=== PATIENT | female | born 1940 | race Caucasian/White ===

== ENCOUNTER 2019-05-17 18:35 | Emergency (ER) | payer MEDICARE ==
--- NOTE | 2019-05-17 20:02 | EDM.PDOC ---
ED HPI GENERAL MEDICAL PROBLEM - General Chief Complaint: ENT Problem Stated Complaint: TONGUE BLEEDING Time Seen by Provider: 05/17/19 20:01 - History of Present Illness INITIAL COMMENTS - FREE TEXT/NARRATIVE: 79-year-old female presents emergency room with bleeding on her tongue. The patient is on Coumadin and recently had her Coumadin dose increas She's noticed some bleeding on the top of her tongue she denies any trauma to the . She's not having any lightheadedness or dizziness but this bleeding is getting to be quite bothersome for her. She has not had any other symptoms with this no fevers no chills no chest pain breathing difficulties or shortness breath - Related Data Allergies Allergy/AdvReac Type Severity Reaction Status Date / Time levofloxacin [From Levaquin] Allergy Difficulty Verified 05/17/19 18:55 Breathing Penicillins Allergy Rash Verified 05/17/19 18:55 Sulfa (Sulfonamide Allergy Rash Verified 05/17/19 18:55 Antibiotics) Home Meds: Home Meds Acetaminophen [Acetaminophen Extra Strength] 1,000 mg PO BID 05/17/19 [History] Aspirin 81 mg PO DAILY 05/17/19 [History] Calcium Carb & Citrate/Vit D3 [Calcium + D3 ER Tablet] 1 each PO BID 05/17/19 [ History] Cyanocobalamin (Vitamin B-12) [Vitamin B-12] 1,000 mcg PO DAILY 05/17/19 [ History] Loratadine [Claritin] 10 mg PO DAILY 05/17/19 [History] Losartan [Cozaar] 100 mg PO DAILY 05/17/19 [History] Lutein/Zeaxanthin [Lutein-Zeaxanthin 20-1 mg Sfgl] 1 each PO DAILY 05/17/19 [ History] Lycopene 10 mg PO DAILY 05/17/19 [History] Mirabegron [Myrbetriq] 25 mg PO MOFR 05/17/19 [History] Montelukast [Singulair] 10 mg PO DAILY 05/17/19 [History] Mv-Mn/Folic Acid/Calcium/Vit K [Women's 50 Plus Multivit Tab] 1 each PO DAILY [History] Omeprazole 40 mg PO DAILY 05/17/19 [History] Pravastatin [Pravachol] 40 mg PO BEDTIME 05/17/19 [History] Propafenone [Rythmol] 150 mg PO TID 05/17/19 [History] Vit A/C/E/Zinc/Selenium/Copper [Vision Formula Tablet] 1 each PO DAILY 05/17/19 [History] Warfarin [Coumadin] 2.5 mg PO [id number] 05/17/19 [History] Warfarin [Coumadin] 5 mg PO ALLRED 05/17/19 [History] amLODIPine [Norvasc] 5 mg PO DAILY 05/17/19 [History] hydroCHLOROthiazide [Hydrochlorothiazide] 25 mg PO DAILY 05/17/19 [History] Past Medical History HEENT History: Reports: Impaired Vision Cardiovascular History: Reports: Afib, High Cholesterol, Hypertension Other Cardiovascular History: has been cardioverted Respiratory History: Reports: Asthma Gastrointestinal History: Reports: GERD Social & Family History - Tobacco Use Smoking Status *Q: Never Smoker - Caffeine Use Caffeine Use: Reports: Coffee - Recreational Drug Use Recreational Drug Use: No ED ROS GENERAL - Review of Systems Review Of Systems: See Below Constitutional: Reports: No Symptoms HEENT: Reports: Other (No problems other than her tongue bleeding) Respiratory: Reports: No Symptoms Cardiovascular: Reports: No Symptoms Endocrine: Reports: No Symptoms GI/Abdominal: Reports: No Symptoms : Reports: No Symptoms Skin: Reports: No Symptoms Neurological: Reports: No Symptoms ED EXAM, DIZZINESS - Physical Exam Exam: See Below Exam Limited By: No Limitations General Appearance: Alert, No Apparent Distress Eye Exam: Left Eye: Normal Inspection Ears: Normal External Exam, Normal Canal, Normal TMs Nose: Normal Inspection, Normal Mucosa, No Blood Throat/Mouth: Normal Inspection, Normal Lips, Normal Teeth, Normal Gums, Normal Oropharynx, Normal Voice, No Airway Compromise, Other (She has some bleeding on the top of her tongue no obvious lacerations or abrasions) Head Exam: Atraumatic, Normocephalic Respiratory/Chest: No Respiratory Distress, Lungs Clear, Normal Breath Sounds Cardiovascular: No Edema, No Murmur, Irregularly Irregular Rectal (Female) Exam: Normal Exam, Normal Rectal Tone Neurological: Alert, Normal Mood/Affect, Normal Dorsiflexion, CN II-XII Intact Back Exam: Normal Inspection, Full Range of Motion Extremities: Normal Inspection, No Pedal Edema Psychiatric: Normal Affect, Normal Mood Skin Exam: Warm, Dry, Intact Course - Vital Signs Last Recorded V/S: Last Vital Signs Temp 36.6 C 05/17/19 18:50 Pulse 65 05/17/19 18:50 Resp 16 05/17/19 18:50 BP 138/84 05/17/19 18:50 Pulse Ox 96 05/17/19 18:50 - Orders/Labs/Meds Labs: Laboratory Tests 05/17/19 05/17/19 Range/Units 20:17 20:17 WBC 8.92 (3.98-10.04) K/mm3 RBC 4.18 (3.98-5.22) M/mm3 Hgb 13.2 (11.2-15.7) gm/L Hct 40.1 (34.1-44.9) % MCV 95.9 H (79.4-94.8) fl MCH 31.6 (25.6-32.2) pg MCHC 32.9 (32.2-35.5) g/dl RDW Std Deviation 48.1 H (36.4-46.3) fL Plt Count 481 H (182-369) K/mm3 MPV 9.0 L (9.4-12.3) fl PT 28.2 H (9.7-12.0) SECONDS INR 2.74 Meds: Medications Discontinued Medications Generic Name Dose Route Start Last Admin Trade Name Freq PRN Reason Stop Dose Admin Tranexamic Acid 1,000 mg 05/17/19 21:34 05/17/19 21:41 Cyklokapron TOP 05/17/19 21:35 1,000 mg ONETIME ONE Administration - Re-Assessments/Exams Free Text/Narrative Re-Assessment/Exam: 05/17/19 22:14 Anderson inadequate caught applied to her tongue and this helped significantly then we applied TXA to it and the bleeding basically stopped. INR is 2.7 to CBC appears stable. Patient is on lifelong Coumadin because of atrial fibrillation and her INR is therapeutic today. Departure - Departure Time of Disposition: 22:15 Disposition: Home, Self-Care 01 Clinical Impression: Hemorrhage of tongue - Discharge Information Referrals: PCP,Not In Area [Primary Care Provider] - Forms: ED Department Discharge Additional Instructions: Return to emergency room with any questions problems. If it starts bleeding again apply direct pressure.
== END 2019-05-17 22:28 | disposition home or self-care (01) ==
LOC: JD.ED 18:35
DX: K14.8 Other diseases of tongue (principal); I10 Essential (primary) hypertension; E78.00 Pure hypercholesterolemia, unspecified; I48.91 Unspecified atrial fibrillation; J45.909 Unspecified asthma, uncomplicated; K21.9 Gastro-esophageal reflux disease without esophagitis; Z79.899 Other long term (current) drug therapy; Z79.82 Long term (current) use of aspirin; Z88.0 Allergy status to penicillin; Z88.1 Allergy status to other antibiotic agents; Z88.2 Allergy status to sulfonamides
CPT/HCPCS: 36415; 85027; 85610; 99283